=== PATIENT | female | born 1945 | race Caucasian/White ===

== ENCOUNTER → 2016-09-03 | Outpatient (CLI) | payer MEDICARE, BC ==
[~2016-09-03] MED LIST: CARAFATE1 G PO; CARAFATE1 GM PO; ENSURE237 ML PO; FLONASE ALLERG9.9 ML; LASIX PO; LEVOXYL; LEVOXYL50 MCG PO; METOPROLOL TAR25 MG PO; NEXIUM PO; OMEPRAZOLE20 M2 PO; PERCOCET 7.5-31 EACH PO; PERCOCET10 PO; SECTRAL PO; STEROID; TOFRANIL; TOFRANIL PO
--- NOTE | ~2016-09-03 | US128 ---
[id number] [address] [id number] O MR#: [id number] Acc #: [id number] NAME: MICHAEL LOEA : 1945 SEX: F STUDY DATE/TIME: 09/03/2016 10:29 UNIT: [facility] ROOM: STUDY DESCRIPTION: Thyroid Attending Physician: Rich Watson M.D. Referring Physician: Rich Watson M.D. Ordering Physician: Rich Watson M.D. Primary Care Physician: Joanna Gonzáles M.D. MEDICAL IMAGING REPORT This report is preliminary unless electronic signature is present. EXAM Ultrasound of the thyroid gland. INDICATION Multiple thyroid nodules. Patient has a history of right thyroidectomy in 1998. She had most recent follow-up examination in July of 2014. TECHNIQUE Jin-scale and color Doppler sonographic images were obtained through the thyroid gland. FINDINGS Patient is again noted to have a small amount of residual thyroid parenchyma on the right. It measures 0.7 x 0.9 x 1.2 cm. On the left, the left lobe measures 1.6 x 1.6 x 4.4 cm. Thyroid parenchyma is heterogeneous. Multiple thyroid nodules are identified. All of these are stable when compared to the exam from July of 2014. They are felt to be benign. No definite new nodules are identified. IMPRESSION 1. Stable appearance to multiple left-sided thyroid nodules when compared to July or 2014. 2. Small bowel residual thyroid parenchyma again seen on the right. Dictated by... Rimma Marx M.D. THIS IS AN ELECTRONICALLY VERIFIED REPORT Rimma Marx M.D. at 09/04/2016 9:46 AM JUDITH/haider TD: 09/03/2016 16:04 JOB #: [id number] MEDICAL IMAGING REPORT Page 1 of 1
== END | disposition home or self-care (01) ==
LOC: SGUS 08-26 11:00
DX: E04.2 Nontoxic multinodular goiter (principal)
CPT/HCPCS: 76536